=== PATIENT | female | born 1990 | race African-American/Black ===

== ENCOUNTER 2020-05-18 04:06 | Emergency (ER) | payer MEDICAID, SELFPAY ==
[2020-05-18 04:08] VITALS: BP 126/78; PULSE 86; RESP 16; TEMP 37.1; O2SAT 100; BMI 27.4
--- NOTE | 2020-05-18 04:26 | ED.GENADULT ---
HPI - General Adult General Chief complaint: General Medical Stated complaint: Hand Numbness Time Seen by Provider: 05/18/20 04:26 Source: patient Mode of arrival: ambulatory Limitations: no limitations History of Present Illness HPI narrative: Patient been feeling left middle finger numbness for last 1 week of unknown etiology today she felt tingling in the right arm which is gone now no neck pain no weakness no family history of multiple sclerosis or lupus and no injury to the left hand no neck pain Related Data Allergies Allergy/AdvReac Type Severity Reaction Status Date / Time No Known Allergies Allergy Verified 05/18/20 04:08 Review of Systems Review of Systems: Constitutional : No Weight loss, No Fever, No Chills ENT/Mouth : No sore throat, No Rhinorrhea Eyes: No Eye Pain, No Swelling Cardiovascular : No Chest Pain, no Dyspnea on Exertion, No Orthopnea, No Edema, No Palpitations, no SOB Respiratory : No Cough, No Sputum Gastrointestinal : no Nausea, No Vomiting, No Diarrhea, No abdominal Pain, No Hematochezia, No Melena Genitourinary : No Dysuria, No Urinary Frequency Musculoskeletal : No joint pain, No Myalgias, No Joint Swelling Skin : No Skin Lesions, No rash Neuro : No Weakness, , No Headache Psych : No Anxiety/Panic, No Depression Heme/Lymph: No Bruising, No Lymphadenopathy Endocrine : No Polyuria, No Polydipsia All other systems reviewed and are negative [facility] Past Medical History Medical History Anxiety Depression Physical Exam Vital Signs: Vital Signs: Last Vital Signs Temp 98.8 F 05/18/20 04:08 Pulse 86 05/18/20 04:08 Resp 16 05/18/20 04:08 BP 126/78 05/18/20 04:08 Pulse Ox 100 05/18/20 04:08 Body Mass Index 27.4 Appearance: Alert. Oriented X3. No acute distress. Eyes: Pupils equal, round and reactive to light. ENT: Pharynx normal. Neck: Normal inspection. Neck supple. CVS: Normal heart rate and rhythm. Pulses normal. Respiratory: No respiratory distress. Breath sounds normal. Abdomen: Soft and nontender. Bowel sounds are present, no mass palpable, no CVA tenderness Skin: Skin warm and dry. Normal skin color. Normal skin turgor. Extremities: No lower extremity edema. Neuro: Oriented X 3. No motor deficit. Sensory loss to the tip of left middle finger to light touch and pain and temperature, no other deficit Medical Decision Making MDM Narrative Medical decision making narrative: Patient nonspecific numbness of left 3rd fingertip etiology isn't very clear patient advised to follow-up with neurologist patient's blood sugar was 97
--- NOTE | 2020-05-18 04:27 | PC.NURSE ---
Pt ambulating from the waiting room into room 18 with a steady gait. Pt is CAOx4, speaking full sentences. Pt reporting intermittent numbness to left hand, middle finger and to right arm from elbow down. 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 Pt denies recent stressors/anxiety. Pt states that she thought the numbness was r/t a pinched nerve. Neuro exam unremarkable. MD at bedside for primary eval.
[2020-05-18 04:35] LABS: Glucose, Whole Blood 95 mg/dL (60-115)
== END 2020-05-18 04:45 | disposition home or self-care (01) ==
PROVIDERS: Emergency Provider Internal Medicine
DX: R20.2 Paresthesia of skin (principal)
CPT/HCPCS: 82947; 99283

== ENCOUNTER 2020-05-20 16:13 | Emergency (ER) | payer MEDICAID, SELFPAY ==
--- NOTE | 2020-05-20 16:50 | PC.NURSE ---
x1 call for triage, no answer.
--- NOTE | 2020-05-20 16:55 | PC.NURSE ---
x2 call for triage- no answer. pt not found in bathroom or outside.
== END 2020-05-20 17:21 | disposition left against medical advice (07) ==
PROVIDERS: Emergency Provider Emergency Medicine
DX: Z04.89 Encounter for examination and observation for other specified reasons (principal)
CPT/HCPCS: 99281

== ENCOUNTER 2020-07-08 09:28 | Emergency (ER) | payer MEDICAID, SELFPAY ==
--- NOTE | ~2020-07-08 | XR_ITS ---
EXAMINATION: XR HAND, RIGHT CLINICAL INFORMATION: Pain. Question dislocation. COMPARISON: None TECHNIQUE: PA, lateral, and oblique views of the right hand. FINDINGS: The bones and soft tissues are normal. No fracture. Alignment is anatomic. Joint spaces are maintained. No erosions or soft tissue calcifications. XR/XR hand RT min 3V IMPRESSION: Normal right hand.
[2020-07-08 09:47] VITALS: BP 134/79; PULSE 80; RESP 16; TEMP 36.8; O2SAT 97; BMI 25.6
--- NOTE | 2020-07-08 10:09 | ED.EXTPRO ---
HPI - Extremity Problem General Chief complaint: Extremity Injury, Upper Stated complaint: rt hand pain Time Seen by Provider: 07/08/20 10:07 Source: patient Mode of arrival: ambulatory Limitations: no limitations History of Present Illness HPI Narrative: 30 y/o female presenting with right thumb pain and wrist pain for the last 3 days. 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 She is right hand dominant. She denies numbness, tingling or weakness. She reports some mild swelling. She has not taken anything for the pain. Pain is worse with palpation and movement of her proximal thumb. Complaint: joint paint Onset (ago): day(s) (3) Pain Consistency: intermittent Location: right Quality: aching Radiation: none Relieving factors: immobilization Exacerbating factors: range of motion and palpation Associated symptoms: denies other symptoms Related Data Previous Rx's Medication Instructions Recorded ibuprofen 600 mg PO Q8H PRN #20 tab 07/08/20 Allergies Allergy/AdvReac Type Severity Reaction Status Date / Time No Known Allergies Allergy Verified 05/18/20 04:08 Review of Systems Review of Systems: Constitutional: No Fever, No Chills Musculoskeletal: + joint pain, No Myalgias Skin: No Skin Lesions, No rash Neuro: No Weakness, No Numbness, No Dizziness, No Headache Psych: No Anxiety/Panic, No Depression Heme/Lymph: No Bruising, No Lymphadenopathy PMFSH Past Medical History Attestation statement: The following information was validated with the patient. Medical History Anxiety Depression Social History Social History Smoking Status: Current every day smoker Use of substances other than those prescribed or required for medical reasons: No Advance Directives: No Advance Directives Information Provided: No Physical Exam Vital Signs: Vital Signs: Last Vital Signs Temp 98.3 F 07/08/20 09:47 Pulse 80 07/08/20 09:47 Resp 16 07/08/20 09:47 BP 134/79 07/08/20 09:47 Pulse Ox 97 07/08/20 09:47 Body Mass Index 25.6 Appearance: Alert. Oriented X3. No acute distress. HEENT: normal inspection CVS: Normal heart rate and rhythm. Pulses normal. Respiratory: No respiratory distress. Skin: Skin warm and dry. Normal skin color. Normal skin turgor. No rashes. Extremities: normal right hand inspection, right lateral wrist tenderness, thumb MCP joint tenderness. Full ROM with some discomfort, NV intact. 2+ radial pulse. Negative Phalen's test. Neuro: Oriented X 3. No motor deficit. No sensory deficit. Course Course Course Narrative: 30 y/o female presenting with nontraumatic right thumb/wrist pain. XR is negative. She likely sustained a sprain vs strain of one of the tendons in her wrist in her line of work. Will place in removable thumb spica splint, start NSAID and have her f/u with Ortho in 1 week if no improvement. Stable for discharge. Discharge Plan Discharge Clinical Impression: Sprain and strain of wrist Patient Disposition: Home, Self-Care Instructions: Wrist Sprain (ED) Additional Instructions: Your x-ray today was normal. It is likely that you strained or sprained one of the tendons in your wrist. Wear the wrist brace for comfort, as needed. Use ice several times per day. Elevate your hand when possible. Take the prescribed anti-inflammatory as directed for pain/discomfort. If your pain persists in 1 week, follow up with the Orthopedic doctor for further workup. Prescriptions: New ibuprofen 600 mg tablet 600 mg PO Q8H PRN (Reason: pain) Qty: 20 RF: 0 Referrals: Anderson Louise MD [Physician] - 1 week (right wrist pain) Stand Alone Forms: Work/School Release
== END 2020-07-08 10:35 | disposition home or self-care (01) ==
PROVIDERS: Emergency Provider Emergency Medicine Emergency Medical Services
DX: S63.501A Unspecified sprain of right wrist, initial encounter (principal); M25.531 Pain in right wrist; X50.0XXA Overexertion from strenuous movement or load, initial encounter; X50.3XXA Overexertion from repetitive movements, initial encounter; Y93.9 Activity, unspecified; Y92.59 Other trade areas as the place of occurrence of the external cause; Y99.0 Civilian activity done for income or pay
CPT/HCPCS: 73130; 99283

== ENCOUNTER 2021-02-04 09:39 | Emergency (ER) | payer MEDICAID, SELFPAY ==
[2021-02-04 09:46] VITALS: BP 106/96; PULSE 98; RESP 189; TEMP 36.9; O2SAT 97; BMI 25.8
--- NOTE | 2021-02-04 10:39 | ED.ABDPAIN ---
HPI - Abdominal Pain General Chief Complaint: Abdominal Pain Stated Complaint: Constipation Time Seen by Provider: 02/04/21 10:34 Source: patient Mode of arrival: ambulatory Limitations: no limitations History of Present Illness HPI narrative: 30-year-old female came in for evaluation of abdominal pain and no bowel movement for the past few days. Patient feeling constipated for 3- 4 days, no nausea, no vomiting. Has been eating with good appetite. Patient never had history of abdominal surgery in the past. Related Data Previous Rx's Medication Instructions Recorded ibuprofen 600 mg tablet 600 mg PO Q8H PRN #20 tab 07/08/20 Allergies Allergy/AdvReac Type Severity Reaction Status Date / Time No Known Allergies Allergy Verified 05/18/20 04:08 Review of Systems Review of Systems All other systems are reviewed and are negative Constitutional: Reports as per HPI and Reports no additional constitutional complaints Eyes: Reports as per HPI and Reports no additional eye complaints Reports system reviewed and no additional complaints, except as documented Cardiovascular: Reports as per HPI and Reports no additional cardiovascular complaints Respiratory: Reports as per HPI and Reports no additional respiratory complaints Gastrointestinal: Reports as per HPI and Reports no additional gastrointestinal complaints Genitourinary: Reports no additional female genitourinary complaints Musculoskeletal: Reports no additional musculoskeletal complaints Skin/Breast: Reports system reviewed and no additional complaints, except as docu Psychiatric: Reports no additional psychiatric complaints Endocrine: Reports no additional endocrine complaints Hematologic/Lymphatic: Reports no additional hematologic/lymphatic complaints Allergic/Immunologic: Reports no additional allergic/immunologic complaints Reports system reviewed and no additional complaints, except as documented and Reports Abnormal speech present Physical Exam Vital Signs: Vital Signs: Last Vital Signs Temp 98.4 F 02/04/21 09:46 Pulse 98 02/04/21 09:46 Resp 189 H 02/04/21 09:46 BP 106/96 H 02/04/21 09:46 Pulse Ox 97 02/04/21 09:46 Body Mass Index 25.8 Vital signs have been reviewed as appeared to be correct. Blood pressure normal. Heart rate normal. Respiration rate normal. Temperature normal. Oxygen saturation normal. Appearance: Alert. Oriented X3. No acute distress. Head: Normal external exam. Normocephalic. Atraumatic. No Franco signs noted. No raccoon eyes noted Eyes: PERRLA. EOMI. Conjunctiva and sclera normal. Eyelids normal. ENT: TM's Normal. Pharynx normal. Uvula midline. Moist mucous membranes. No trismus noted. No drooling noted. No muffled voice noted. Neck: Normal inspection. Neck supple. FROM. No adenopathy. Thyroid Normal. No meningeal signs. No neck mass noted. CVS: Normal heart rate and rhythm. Heart sound normal. No murmurs noted. Pulses normal throughout. Respiratory: No respiratory distress. Painless inspiration. Breath sounds normal. No wheezes/rales/rhonchi noted. Chest nontender. No accessory muscle usage noted or decreased air movement noted. Abdomen: Soft and nontender. Bowel sounds normal in all 4 quadrants. No distention noted. No organomegaly noted. No visible injury noted. Rectal exam: Hard stool in the vault. No rectal bleeding, no rectal mass. (exam was done with a female mid level project manager in the room RN Ximena). Back: No CVA tenderness. Full range of motion noted. Skin: Skin warm and dry. Normal skin color. Normal skin turgor. No rashes/lesions/lacerations noted. Extremities: No lower extremity edema. Extremities exhibit normal range of motion. Extremities nontender. Neuro: Oriented X 3. Cranial nerve exam: II-XII are grossly intact No motor deficit. No sensory deficit. Reflexes normal. Course Course Course Narrative: Assessment and plan. 30-year-old female came in with complaint of constipation for the past couple days, physical exam is very consistent with constipation with hard stool in the rectal vault, patient was given rectal enema with milk a magnesia patient had a partial bowel movement while in the emergency department but still feel stool in the vault. Repeat abdominal exam revealed mild tenderness mostly in the lower abdomen no rebound, no guarding. Will discharge the patient after drinking milk a magnesia in to have a bowel movement to home patient was instructed to return for further evaluation if unable to have bowel movement, portable nausea or vomiting. Discharge Plan Discharge Clinical Impression: Constipation Patient Disposition: Home, Self-Care Instructions: Constipation (ED) Prescriptions: No Action ibuprofen 600 mg tablet 600 mg PO Q8H PRN (Reason: pain) Qty: 20 RF: 0 Referrals: [place] [Primary Care Provider] - 2 days PMF Past Medical History Medical History Anxiety Depression Social History Social History Advance Directives: No Advance Directives Information Provided: No
[2021-02-04] MEDS: Milk of Magnesia 30 ML ORAL.SUSP PO ×2 (10:47→13:20)
[2021-02-04] MEDS: Mineral OiL enema 133 ML ENEMA PR (10:48)
== END 2021-02-04 13:21 | disposition home or self-care (01) ==
PROVIDERS: Emergency Provider Emergency Medicine
DX: K59.00 Constipation, unspecified (principal); Z79.899 Other long term (current) drug therapy
CPT/HCPCS: 99283

== ENCOUNTER 2021-03-25 19:42 | Emergency (ER) | payer MEDICAID, SELFPAY ==
[2021-03-25 20:16] VITALS: BP 145/80; PULSE 100; RESP 16; TEMP 37.2; O2SAT 96; BMI 32.9
[2021-03-25 20:26] LABS: Appearance Urine CLEAR; Color Urine YELLOW; Glucose Urine UA NEG (NEG); Leukocyte Esterase Urine NEG (NEG); Nitrite Urine NEG (NEG); Specific Gravity - Urine >= 1.030 (1.005-1.025); UACC Culture Trigger NO; Urine Blood 2+ (NEG); Urine Ketones NEG (NEG); Urine Protein TRACE MG/DL (NEG-TRACE)
[2021-03-25 20:41] LABS: Squamous Epithelial Cell Urine 1+ /LPF
[2021-03-25 20:42] LABS: Mucus Urine 2+ /LPF
--- NOTE | 2021-03-25 21:17 | ED.FEMALEGU ---
HPI - Female Genitourinary General Chief complaint: Urogenital-Female Stated complaint: so stated he has gonnorhea Time Seen by Provider: 03/25/21 21:07 Source: patient Mode of arrival: ambulatory Limitations: no limitations History of Present Illness MD elicited complaint: possible STD Pertinent past history: STI/STD (partner told her he has gonorrhea) Onset (ago): day(s) (1) Severity: mild Consistency: constant Vaginal discharge: yellow Vaginal bleeding: none Exacerbating factors: none Relieving factors: none Associated symptoms: denies other symptoms Treatment prior to arrival: none Sexual activity: Yes and New Sexual Partners Related Data Previous Rx's Medication Instructions Recorded ibuprofen 600 mg tablet 600 mg PO Q8H PRN #20 tab 07/08/20 doxycycline hyclate 100 mg capsule 100 mg PO BID 7 Days #14 cap 03/25/21 erythromycin 5 mg/gram (0.5 %) eye 0.5 inch OPHTHALMIC (EYE) BID 7 03/25/21 ointment Days #3.5 g Allergies Allergy/AdvReac Type Severity Reaction Status Date / Time No Known Allergies Allergy Verified 03/25/21 20:16 Review of Systems Review of Systems: Constitutional : No Fever, No Chills ENT/Mouth : No sore throat, No Rhinorrhea Eyes: No Eye Pain, No Redness Cardiovascular : No Chest Pain, No SOB Respiratory : No Cough, No Sputum, No Wheezing Gastrointestinal : no Nausea, No Vomiting, No Diarrhea, no abdominal pain, Genitourinary : no irregular bleeding, No Dysuria, No Urinary Frequency,no pelvic pain, pos vag discharge Musculoskeletal : No Myalgias Skin : No rash Neuro : No Weakness, No Headache PMFSH Past Medical History Attestation statement: The following information was validated with the patient. Medical History Anxiety Depression Social History Social History (Updated 03/25/21 @ 21:19 by Neisha Dill DO) Patient Tobacco Use Status: Never used Tobacco Advance Directives: No Patient : No Physical Exam Vital Signs: Vital Signs: Last Vital Signs Temp 99.0 F 03/25/21 20:16 Pulse 100 03/25/21 20:16 Resp 16 03/25/21 20:16 BP 145/80 H 03/25/21 20:16 Pulse Ox 96 03/25/21 20:16 Body Mass Index 32.9 Appearance: Alert. Oriented X3. No acute distress. Eyes: Pupils equal, round and reactive to light. ENT: Pharynx normal. Neck: Normal inspection. CVS: Normal heart rate and rhythm. Pulses normal. Respiratory: No respiratory distress. Breath sounds normal. Abdomen: Soft and nontender. Skin: Skin warm and dry. Normal skin color. Extremities: No lower extremity edema. Neuro: Oriented X 3. No motor deficit. No sensory deficit. Course Course Course Narrative: also c/o bumps onto inner right eye - only on conjunctiva two small clear fluid sacs no erythema/injection/drainage MDM - Female Genitourinary MDM Narrative Medical decision making narrative: 30 yo female with exposure to gonorrhea here requesting treatment, not toxic appearing benign exam - gave UA sample, no pain doubt TOA, will start on ceftriaxone and doxy - patient aware she needs to practice safe sex Lab Data Labs: Lab Results 03/25/21 03/25/21 Range/Units 20:17 21:33 Urine Color YELLOW Urine Appearance CLEAR Urine pH 6.0 (5.0-8.0) Ur Specific [place] >= 1.030 H (1.005-1.025) Urine Protein TRACE (NEG-TRACE) MG/DL Urine Glucose (UA) NEG (NEG) MG/DL Urine Ketones NEG (NEG) MG/DL Urine Blood 2+ H (NEG) Urine Nitrite NEG (NEG) Ur Leukocyte Esterase NEG (NEG) Urine RBC 5-9 H (0) /HPF Urine WBC 1-4 (0-4) /HPF Ur Squamous Epith Cells 1+ /LPF Urine Bacteria NONE /LPF Urine Mucus 2+ /LPF Urine Test NEGATIVE (NEGATIVE) Discharge Plan Discharge Clinical Impression: Exposure to gonorrhea, Conjunctival irritation, Trichomoniasis Patient Disposition: Home, Self-Care Instructions: Gonorrhea (ED), Trichomoniasis (ED) Additional Instructions: return to ED for any worsening symptoms or concerns no sex for 10 days, practice safe sex. You and your partner need to be fully treated or you will continue to pass this back and forth Prescriptions: New doxycycline hyclate 100 mg capsule 100 mg PO BID 7 Days Qty: 14 RF: 0 erythromycin 5 mg/gram (0.5 %) ointment 0.5 inch ophthalmic (eye) BID 7 Days Qty: 3.5 RF: 0 No Action ibuprofen 600 mg tablet 600 mg PO Q8H PRN (Reason: pain) Qty: 20 RF: 0
[2021-03-25] MEDS: cefTRIAXone sodium 500 MG, Lidocaine HCl 1 % MPF 1 ML IM (21:23)
[2021-03-25 21:42] LABS: UPreg QC Valid YES; Urine Pregnancy NEGATIVE (NEGATIVE)
[2021-03-25 21:55] VITALS: BP 122/79; PULSE 84; RESP 18; TEMP 37.1; O2SAT 97
[2021-03-25] MEDS: metroNIDAZOLE 500 MG TABLET 2000 MG PO (22:04)
[2021-03-25] MEDS: Ondansetron ODT 4 MG TAB.RAPDIS TRANSLINGU (22:04)
[2021-03-25] MEDS: Erythromycin Base 0.5% Oph Oin 1 GM TUBE 1 CM EYE-RIGHT (22:05)
[2021-03-26 01:08] LABS: CT PCR NOT DETECTED (Not Detect.); NG PCR DETECTED (Not Detect.)
== END 2021-03-25 22:11 | disposition home or self-care (01) ==
PROVIDERS: Emergency Provider Emergency Medicine
DX: A54.9 Gonococcal infection, unspecified (principal); A59.9 Trichomoniasis, unspecified
CPT/HCPCS: 81001; 81025; 87491; 87591; 96372; 99283; 99284; J0696

== ENCOUNTER 2021-09-24 08:36 | Emergency (ER) | payer MEDICAID, SELFPAY ==
[2021-09-24 08:47] VITALS: BP 126/91; PULSE 78; RESP 18; TEMP 36.6; O2SAT 100; BMI 29.2
--- NOTE | 2021-09-24 10:04 | ED_ITS ---
HPI - Dental/Oral General Chief complaint: Dental/Oral Stated complaint: dental pain Time Seen by Provider: 09/24/21 09:50 Source: patient Mode of arrival: ambulatory Limitations: no limitations History of Present Illness HPI Narrative: 31-year-old female presents for 3 months of worsening dental pain. Patient sta rika her left upper molar and right lower molar are painful. No fevers, she is able to eat and drink, she is able to open her mouth all the way, no swollen neck, no sore throat. MD Complaint: tooth pain Location: Tooth # Teeth map: 1. multiple caries eroding underside of tooth 2. eroded, decayed tooth with partial avulsion of enamel Onset (ago): month(s) (3) Duration: constant Severity: severe Severity scale (1-10): 10 Relieving factors: nothing Exacerbating factors: cold and heat Context: history of dental caries and poor dental care Treatment prior to arrival: oral analgesic Related Data Previous Rx's Medication Instructions Recorded ibuprofen 600 mg tablet 600 mg PO Q8H PRN #20 tab 07/08/20 doxycycline hyclate 100 mg capsule 100 mg PO BID 7 Days #14 cap 03/25/21 erythromycin 5 mg/gram (0.5 %) eye 0.5 inch OPHTHALMIC (EYE) BID 7 03/25/21 ointment Days #3.5 g metronidazole 500 mg tablet 500 mg PO BID 7 Days #14 tab 03/27/21 clindamycin HCl 300 mg capsule 300 mg PO Q6H 10 Days #40 cap 09/24/21 ketorolac 10 mg tablet 10 mg PO Q6H 5 Days #20 tab 09/24/21 Allergies Allergy/AdvReac Type Severity Reaction Status Date / Time No Known Allergies Allergy Verified 03/25/21 20:16 Review of Systems Constitutional: Constitutional: Denies body ache(s), Denies chills, Denies fatigue, Denies fever(s), Denies headache(s), Denies malaise and Denies weakness Eyes: Eyes: Denies diplopia ENT: Reports dental pain, Denies vertigo, Denies dizziness, Denies otalgia, Denies headache(s), Denies hoarseness, Denies mouth lesions, Reports mouth pain, Denies neck mass, Denies neck pain, Denies odynophagia, Denies post nasal drip, Denies sinus pain, Denies sinus pressure, Denies sore throat and Denies throat swelling Cardiovascular: Cardiovascular: Denies chest pain, Denies syncope, Denies leg edema, Denies lightheadedness, Denies Loss of Consciousness, Denies palpitations and Denies dyspnea Respiratory: Respiratory: Denies chest congestion, Denies cough and Denies dyspnea Gastrointestinal: Gastrointestinal: Denies abdominal pain, Denies hematochezia, Denies constipation, Denies diarrhea, Denies odynophagia and Denies vomiting Musculoskeletal: Musculoskeletal: Reports no additional musculoskeletal complaints and Denies neck pain Neurologic: Denies confusion, Denies vertigo, Denies dizziness, Denies syncope, Denies headache(s) and Denies weakness Psychiatric: Psychiatric: Denies anxiety, Denies confusion and Denies depression Endocrine: Endocrine: Denies fatigue and Denies palpitations Allergic/Immunologic: Allergic/Immunologic: Denies throat swelling PMFSH Past Medical History Medical History Anxiety Depression Social History Social History (Updated 03/25/21 @ 21:19 by Neisha Dill DO) Patient Tobacco Use Status: Never used Tobacco Advance Directives: No Advance Directives Information Provided: No Patient : No Physical Exam Vital Signs: Vital Signs: Last Vital Signs Temp 97.9 F 09/24/21 08:47 Pulse 78 09/24/21 08:47 Resp 18 09/24/21 08:47 BP 126/91 H 09/24/21 08:47 Pulse Ox 100 09/24/21 08:47 BMI result Body Mass Index 29.2 Const: General: No confusion Nutritional Appearance: well nourished Orientation/consciousness: No confusion Limitations: no limitations HEENT: Head: Yes normal to inspection, Yes normocephalic and Yes atraumatic Ears: hearing grossly normal bilaterally and external ears normal General nose exam: Normal external nose present Face and sinus: Yes normal facial exam, Yes sinuses nontender and Yes face symmetric Mouth: Normal oral and palatal mucosa present, mucous membranes dry and malodorous breath Teeth and gingiva: gingiva normal, caries and poor dentition Teeth image: 1. Multiple caries eroding underside of tooth 2. Eroded, decayed tooth, with partial avulsion Throat: Yes posterior oropharynx normal Eyes: Conjunctivae: conjunctivae normal Pupils: Equal, round and reactive pupils present EOM: EOMs intact bilaterally Neck: Neck: Yes full ROM, Yes no lymphadenopathy and Yes supple Resp: Effort & Inspection: normal respiratory effort and able to speak in complete sentences Auscultation: clear to auscultation bilaterally, no crackles, no rales, no rhonchi and no wheezes Cardio: Rate: regular rate Rhythm: regular rhythm Heart sounds: S1 normal heart sound present and S2 normal heart sound present Skin: General skin exam: no rashes or lesions noted Neuro: General: No confusion Cranial nerves: Yes Equal, round and reactive pupils present Extrem: General: Yes normal to inspection and Yes full ROM Psych: Appearance: grossly normal Affect: normal affect Attitude: cooperative Thought process: Normal thought process present Course Course Course Narrative: 31-year-old female with stable vitals is afebrile well-appearing presents with multiple tooth caries and dental pain. On exam, poor dentition, no palpable or drainable gingival abscess, will place patient on clindamycin, ketorolac for pain. Gave return precautions of fever, unable to open mouth, worsening pain, return to be seen Discharge Plan Discharge Clinical Impression: Dental abscess Patient Disposition: Home, Self-Care Instructions: Dental Abscess (ED) Additional Instructions: Please call a dentist on the sheet I gave you for follow-up appointment. Please take antibiotics as prescribed, 1 pill every 6 hours for the next 10 days. Plea se take ketorolac as prescribed, 1 pill every 6 hours for 5 days. Do not take any ibuprofen containing products while your taking ketorolac. Please return to emergency room if you have fevers, you cannot open your mouth, if you have worsening pain, or for any other new or concerning symptoms. Prescriptions: New clindamycin HCl 300 mg capsule 300 mg PO Q6H 10 Days Qty: 40 0RF ketorolac 10 mg tablet 10 mg PO Q6H 5 Days Qty: 20 0RF No Action ibuprofen 600 mg tablet 600 mg PO Q8H PRN (Reason: pain) Qty: 20 0RF doxycycline hyclate 100 mg capsule 100 mg PO BID 7 Days Qty: 14 0RF erythromycin 5 mg/gram (0.5 %) ointment 0.5 inch ophthalmic (eye) BID 7 Days Qty: 3.5 0RF metronidazole 500 mg tablet 500 mg PO BID 7 Days Qty: 14 0RF
[2021-09-24] MEDS: Ketorolac Tromethamine 30 MG/ML VIAL IM (10:15)
== END 2021-09-24 10:19 | disposition home or self-care (01) ==
PROVIDERS: Emergency Provider Emergency Medicine
DX: K04.7 Periapical abscess without sinus (principal)
CPT/HCPCS: 96372; 99283; 99284; J1885

== ENCOUNTER 2022-10-24 15:31 | Emergency (ER) | payer MEDICAID, SELFPAY ==
[2022-10-24 15:46] VITALS: BP 127/80; PULSE 78; RESP 18; TEMP 37.1; O2SAT 98; BMI 36.6
== END 2022-10-24 18:04 | disposition left against medical advice (07) ==
PROVIDERS: Emergency Provider Emergency Medicine
DX: S02.5XXA Fracture of tooth (traumatic), initial encounter for closed fracture (principal); X58.XXXA Exposure to other specified factors, initial encounter; Y93.9 Activity, unspecified; Y92.9 Unspecified place or not applicable; Y99.9 Unspecified external cause status
CPT/HCPCS: 99282

== ENCOUNTER 2023-01-27 17:41 | Outpatient (REF) | payer MEDICAID, SELFPAY ==
[2023-01-28 12:08] LABS: BV Int Neg Control Negative (Negative); BV Int Pos Control Positive (Positive)
== END 2023-01-27 17:42 | disposition home or self-care (01) ==
LOC: HO.HHCLNP 17:41
PROVIDERS: Visit Provider Advanced Practice Midwife
DX: N89.8 Other specified noninflammatory disorders of vagina (principal)
CPT/HCPCS: 87480; 87510; 87660

== ENCOUNTER 2023-01-28 16:11 | Outpatient (REF) | payer MEDICAID, SELFPAY ==
[2023-01-29 07:27] LABS: CT PCR NOT DETECTED (Not Detect.); NG PCR NOT DETECTED (Not Detect.)
[2023-01-29 14:20] LABS: HBS Num1 4.19 mIU/mL (0-7.99); HBc Num1 0.12 S/CO (0.00-0.79); HBsAGNum1 0.49 S/CO (0.00-0.99); HIV AB/AG Nonreactive (Nonreactive); HIV Num 1 0.07 S/CO (0.00-0.99); Hepatitis B Core Antibody Nonreactive (Nonreactive); Hepatitis B Surface Antigen Negative (Negative); ~HepC Num1 0.22 S/CO (0.00-0.79); ~Hepatitis B Surface Antibody NONREACTIVE (Nonreactive); ~Hepatitis C Antibody Nonreactive (Nonreactive)
[2023-01-31 09:01] LABS: Syphilis Screen Nonreactive (Nonreactive)
== END 2023-01-28 16:12 | disposition home or self-care (01) ==
LOC: HO.HHCL 16:11
PROVIDERS: Visit Provider Advanced Practice Midwife
DX: Z11.4 Encounter for screening for human immunodeficiency virus [HIV] (principal); Z11.3 Encounter for screening for infections with a predominantly sexual mode of transmission
CPT/HCPCS: 0353U; 86704; 86706; 86780; 86803; 87340; 87389

== ENCOUNTER 2023-04-27 22:31 | Emergency (ER) | payer MEDICAID, SELFPAY ==
[2023-04-27 22:53] VITALS: BP 125/80; PULSE 77; RESP 18; TEMP 37.1; O2SAT 97; BMI 36.6
== END 2023-04-28 02:56 | disposition left against medical advice (07) ==
PROVIDERS: Emergency Provider Emergency Medicine
DX: R20.0 Anesthesia of skin (principal)
CPT/HCPCS: 99281

== ENCOUNTER 2023-12-03 20:31 | Emergency (ER) | payer MEDICAID, SELFPAY ==
[2023-12-03 20:34] VITALS: BP 123/81; PULSE 79; RESP 18; TEMP 36.5; O2SAT 97; BMI 38.1
--- NOTE | 2023-12-03 22:21 | ED.DENTAL ---
HPI - Dental/Oral General Chief complaint: Dental/Oral Stated complaint: toothache Time Seen by Provider: 12/03/23 22:11 Source: patient Mode of arrival: ambulatory Limitations: no limitations History of Present Illness ED Provider: Dr. Kal Morales HPI Narrative: 33-year-old female with a history of opiate use disorder on Suboxone who presents emergency department for evaluation of dental pain. Patient states that her teeth are very decayed and she attributes this to starting Suboxone. She states she has had multiple dental infections and she did see a dentist who recommended that she have all of her teeth extracted. Patient states that her proximally 1 month ago she had a dental infection and was treated with the amoxicillin but never followed up with her dentist again. She states that over the past week she has had increased pain in her right lower jaw but all of her teeth hurt. She states that the gums in her right lower jaw are very swollen. She states that she had subjective fever and chills. She denied nausea, vomiting, weakness. Related Data Previous Rx's ?Medication ?Instructions ?Recorded ibuprofen 600 mg tablet 600 mg PO Q8H PRN pain #20 tabs 07/08/20 doxycycline hyclate 100 mg capsule 100 mg PO BID 7 days #14 caps 03/25/21 erythromycin 5 mg/gram (0.5 %) eye 0.5 inch ophthalmic (eye) BID 7 03/25/21 ointment days #3.5 grams metronidazole 500 mg tablet 500 mg PO BID 7 days #14 tabs 03/27/21 clindamycin HCl 300 mg capsule 300 mg PO Q6H 10 days #40 caps 09/24/21 ketorolac 10 mg tablet 10 mg PO Q6H 5 days #20 tabs 09/24/21 acetaminophen 500 mg tablet 1,000 mg (2 x 500 mg) PO Q6H PRN 12/03/23 (Tylenol Extra Strength) fever or pain #20 tabs clindamycin HCl 300 mg capsule 600 mg (2 x 300 mg) PO Q8H 7 days 12/03/23 #42 caps ibuprofen 400 mg tablet 400 mg PO TID PRN fever or pain 12/03/23 #30 tabs Allergies Allergy/AdvReac Type Severity Reaction Status Date / Time No Known Allergies Allergy Verified 12/03/23 20:39 Review of Systems Review of Systems: Yes all other systems are reviewed and are negative PMFSH [facility] Narrative: Social history: The patient does smoke cigarettes. She denies alcohol use. 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 Medical History Anxiety Depression Social History Social History (Updated 03/25/21 @ 21:19 by Amaya Dill DO) Patient Tobacco Use Status: Never used Tobacco Advance Directives: No Advance Directives Information Provided: No Do you have a plan to hurt others: No Plan Physical Exam Vital Signs: Vital Signs: Last Vital Signs Temp 97.7 F 12/03/23 20:34 Pulse 79 12/03/23 20:34 Resp 18 12/03/23 20:34 BP 123/81 12/03/23 20:34 Pulse Ox 97 12/03/23 20:34 O2 Del Method Room Air 12/03/23 20:34 BMI result Body Mass Index 38.1 Vital signs were normal Exam: General: Awake, alert in no distress Mouth: Patient has significant decay of her teeth down to the gumline, patient's right lower jaw has several teeth decayed below the gumline with swelling of the gingiva with no obvious abscess that needs to be drained. Patient's face appears to be symmetric with no significant soft tissue swelling. Medical Decision Making Medical Decision Making [facility] Narrative: 33-year-old female with a history of opiate use disorder on Suboxone who presents emergency department for evaluation of dental pain x1 month, with increased pain in the right lower jaw x1 week. Vital signs were normal. Examination did reveal significant dental caries with several teeth in the right lower jaw decayed below the gumline with swelling of the gingiva with no obvious drainable abscess. Differential diagnosis: ?Includes but is not limited to dental caries, dental infection, dental abscess, gingivitis Patient was initially treated with the following: Clindamycin 600 mg orally, ibuprofen 400 mg orally Course: 22:34 Patient's examination is consistent with dental infection secondary to severe dental caries as well as gingival infection. Patient was started on clindamycin 600 mg every 8 hours x7 days and she was given her 1st dose of clindamycin 600 mg orally here in the emergency department. Patient was given prescriptions for ibuprofen 400 mg every 6 hours as needed for pain and Tylenol 1000 mg every 6 hours as needed for pain. She was given her 1st dose of ibuprofen 400 mg orally here in the emergency department. Patient was advised to follow-up with her dentist in 2 days. She was given printed and verbal instructions and discharged home. Prescription Management I considered prescription management with: Pain Medication and Antibiotic Chronic Conditions Patient?s care impacted by: Other (Opiate use disorder) Discharge Plan Discharge Clinical Impression: Dental caries, Dental infection Patient Disposition: Home, Self-Care Instructions: Dental Abscess (ED) Additional Instructions: At this time, your exam is consistent with an infection of the teeth and gums in the right lower jaw. Take clindamycin 300 mg pills, 2 pills 3 times a day (every 6 hours while awake) for 7 days Take ibuprofen 200 mg pills, 2 pills every 6 hours as needed for pain or fever. Take Tylenol (acetaminophen) 500 mg pills, 2 pills every 6 hours as needed for pain or fever. Follow-up with your dentist in 2 days. Please return to the emergency department if your symptoms get worse or if you develop any symptoms that are concerning to you. Prescriptions: New clindamycin HCl 300 mg capsule 600 mg PO Q8H 7 Days Qty: 42 0RF acetaminophen [Tylenol Extra Strength] 500 mg tablet 1,000 mg PO Q6H PRN (Reason: fever or pain) Qty: 20 0RF ibuprofen 400 mg tablet 400 mg PO TID PRN (Reason: fever or pain) Qty: 30 0RF No Action ibuprofen 600 mg tablet 600 mg PO Q8H PRN (Reason: pain) Qty: 20 0RF doxycycline hyclate 100 mg capsule 100 mg PO BID 7 Days Qty: 14 0RF erythromycin 5 mg/gram (0.5 %) ointment 0.5 inch ophthalmic (eye) BID 7 Days Qty: 3.5 0RF metronidazole 500 mg tablet 500 mg PO BID 7 Days Qty: 14 0RF clindamycin HCl 300 mg capsule 300 mg PO Q6H 10 Days Qty: 40 0RF ketorolac 10 mg tablet 10 mg PO Q6H 5 Days Qty: 20 0RF Print Language: Citizen Of [place]
[2023-12-03] MEDS: Ibuprofen 400 MG TABLET PO (22:37)
[2023-12-03] MEDS: Clindamycin HCL 300 MG CAPSULE 600 MG PO (22:37)
[2023-12-03 22:50] VITALS: BP 123/81; PULSE 79; RESP 18; TEMP 36.5; O2SAT 97
== END 2023-12-03 22:51 | disposition home or self-care (01) ==
PROVIDERS: Emergency Provider Emergency Medicine Emergency Medical Services
DX: K04.7 Periapical abscess without sinus (principal); K02.9 Dental caries, unspecified; K08.89 Other specified disorders of teeth and supporting structures; F11.20 Opioid dependence, uncomplicated
CPT/HCPCS: 99283

== ENCOUNTER 2024-01-12 18:11 | Emergency (ER) | payer MEDICAID, SELFPAY ==
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
[2024-01-12 18:21] VITALS: BP 120/85; PULSE 88; RESP 16; TEMP 36.4; O2SAT 97; BMI 27.4
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
[2024-01-12 19:20] VITALS: BP 133/90; PULSE 76; RESP 14; TEMP 36.8; O2SAT 95
== END 2024-01-12 23:22 | disposition home or self-care (01) ==
PROVIDERS: Emergency Provider Emergency Medicine Emergency Medical Services
DX: S13.9XXA Sprain of joints and ligaments of unspecified parts of neck, initial encounter (principal); R07.89 Other chest pain; M54.2 Cervicalgia; R51.9 Headache, unspecified; V43.52XA Car driver injured in collision with other type car in traffic accident, initial encounter; Y93.89 Activity, other specified; Y92.488 Other paved roadways as the place of occurrence of the external cause; Y99.8 Other external cause status
CPT/HCPCS: 70450; 71046; 72125; 99283; 99284

== ENCOUNTER 2024-05-15 13:10 | Emergency (ER) | payer MEDICAID, SELFPAY ==
--- NOTE | ~2024-05-15 | XR_ITS ---
EXAMINATION: XR CHEST CLINICAL INFORMATION: chest pain COMPARISON: Chest 01/12/2024 TECHNIQUE: Frontal view of the chest was obtained. FINDINGS: No significant abnormality is noted involving the heart, lungs, mediastinum, bony thorax or soft tissues. XR/XR chest 1V IMPRESSION: Unremarkable chest examination. No change from 01/12/2024 Electronically signed by: Oliverio Starr MD 05/15/2024 07:19 PM EST
--- NOTE | ~2024-05-15 | CT_ITS ---
EXAMINATION: CT HEAD WITHOUT CONTRAST CLINICAL INFORMATION: Numbness. COMPARISON: CT head from 01/12/2024. TECHNIQUE: Contiguous axial imaging was performed from the skull base to vertex without intravenous administration of contrast. This CT examination was performed using dose optimization techniques as appropriate, variously including the following: *Automated exposure control. *Adjustment of mA and/or kV according to patient size (this includes techniques or standardized protocols for targeted exams where dose is matched to indication/reason for exam; i.e. extremities or head). *Use of iterative reconstruction technique. DLP: 595 mGy-cm FINDINGS: There is no evidence of acute intracranial hemorrhage or edematous territorial infarction. Dailey-white matter differentiation is preserved. There is no abnormal attenuation within the brain parenchyma. The ventricles are normal in morphology and size. No evidence for obstructive hydrocephalus. No abnormal mass effect or midline shift. No extra-axial fluid collections. No acute soft tissue or osseous abnormalities. Mild mucosal thickening of the paranasal sinuses. The mastoid air cells and middle ear cavities are clear. CT/CT head/brain wo IV con IMPRESSION: No evidence of acute intracranial hemorrhage or edematous territorial infarction. Electronically signed by: Farrukh Gaines DO 05/15/2024 06:18 PM [facility]
[2024-05-15 13:19] VITALS: BP 138/88; PULSE 63; RESP 16; TEMP 37; O2SAT 98; BMI 37.7
[2024-05-15 15:04] LABS: MANUAL DIFF FLAG NO
[2024-05-15 15:06] LABS: Appearance Urine Cloudy; Basophils Percent Auto 0.3 % (0-2); Color Urine Yellow; Eosinophils Absolute Auto 0.1 X10*3/uL (0.0-0.4); Glucose Urine UA Negative (Negative); Hemoglobin 12.2 g/dl (12.0-16.0); Imm Gran Abs Auto 0.03 X10*3/uL (0.00-0.03); Imm Gran Pct Auto 0.3 % (0.0-0.4); Leukocyte Esterase Urine Moderate (2+) (Negative); Lymphocytes Absolute Auto 3.4 X10*3/uL (1.2-4.9); Lymphocytes Percent Auto 39.7 % (20-40); Mean Corpuscular HGB Conc 33.9 g/dl (31.0-35.0); Mean Corpuscular Hemoglobin 31.2 pg (27.0-33.0); Mean Corpuscular Volume 92.1 fL (80.0-98.0); Mean Platelet Volume 9.3 fL (9.4-12.3); Monocytes Absolute Auto 0.5 X10*3/uL (0.1-1.2); Monocytes Percent Auto 5.7 % (2-11); Neutrophils Absolute Auto 4.6 x10*3/uL (2.0-8.3); Nitrite Urine Negative (Negative); PH 6.5 (5.0-9.0); Platelet Count 320 X10*3/uL (160-400); Red Blood Count 3.91 X10*6/uL (4.20-5.50); Red Cell Distribution Width 11.6 % (11.0-16.0); Specific Gravity - Urine >= 1.030 (1.005-1.025); UMIC TRIGGER UACC YES; Urine Blood Small (1+) (Negative); Urine Ketones Negative (Negative); Urine Protein Negative (Neg-Trace); White Blood Count 8.7 X10*3/uL (4.8-10.8)
[2024-05-15 15:10] LABS: Bacteria Urine 4+ (None Seen); Hyaline Casts Urine 0-2 /LPF (0-2); RBC Urine >20 /HPF (0-2); Squamous Epithelial Cell Urine >20 /HPF (0-2); UACC Culture Trigger YES; WBC Urine 21-50 /HPF (0-5)
[2024-05-15 15:34] LABS: Albumin Level 4.1 g/dL (3.5-5.0); Anion Gap 12 (12-20); Aspartate Amino Transferase 24 U/L (5-31); Bilirubin Total 0.3 mg/dL (0.0-1.0); Blood Urea Nitrogen 11 mg/dL (9-16); Calcium 9.1 mg/dL (8.4-10.2); Carbon Dioxide 26 mmol/L (22-29); Chloride 104 mmol/L (96-108); Creatinine Clr Calc Pharmacy 122.2; Estimated Glomerular Filt Rate > 60; Glucose Random 95 mg/dL (60-115); HCG Quantitative < 2 mIU/mL; Lipase 11 U/L (8-78); Magnesium 1.9 mg/dL (1.6-2.6); Phosphorus 4.1 mg/dL (2.7-4.5); Potassium 3.8 mmol/L (3.3-5.1); Sodium 138 mmol/L (135-145); Total Protein 7.5 g/dL (6.5-8.0)
[2024-05-15 15:39] LABS: Alanine Aminotransferase 19 U/L (0-31); Alkaline Phosphatase 51 U/L (39-117)
[2024-05-15 16:40] VITALS: BP 120/83; PULSE 75; RESP 16; TEMP 36.3; O2SAT 97
--- NOTE | 2024-05-15 16:43 | ECG_ITS ---
Test Reason : L ARM NUMBNESS/ CHEST PAIN Blood Pressure : / mmHG Vent. Rate : 064 BPM Atrial Rate : 064 BPM P-R Int : 188 ms QRS Dur : 064 ms QT Int : 402 ms P-R-T Axes : 003 015 012 degrees QTc Int : 414 ms Normal sinus rhythm Anterior infarct , age undetermined Abnormal ECG When compared with ECG of 24-MAR-2017 20:58, Anterior infarct is now Present Nonspecific T wave abnormality, worse in Anterolateral leads Referred By: Garry Issa Electronically Signed By:CLIVE SELLERS
--- NOTE | 2024-05-15 16:50 | ED_ITS ---
HPI - General Adult General Chief complaint: Neck Pain/Injury Stated complaint: Numbness L side of body Time Seen by Provider: 05/15/24 16:34 Source: patient Mode of arrival: ambulatory Limitations: no limitations History of Present Illness ED Provider: Garry Issa HPI narrative: 34 yold female preesnts to the ED for left arm numbness/pain/tinling raidating down lefft arm and into chest for months. patient denies any slurred speech, facial droop, paralysis of extremities, fever, chills, or any trauma. Related Data Previous Rx's ?Medication ?Instructions ?Recorded ibuprofen 600 mg tablet 600 mg PO Q8H PRN pain #20 tabs 07/08/20 doxycycline hyclate 100 mg capsule 100 mg PO BID 7 days #14 caps 03/25/21 erythromycin 5 mg/gram (0.5 %) eye 0.5 inch ophthalmic (eye) BID 7 03/25/21 ointment days #3.5 grams metronidazole 500 mg tablet 500 mg PO BID 7 days #14 tabs 03/27/21 clindamycin HCl 300 mg capsule 300 mg PO Q6H 10 days #40 caps 09/24/21 ketorolac 10 mg tablet 10 mg PO Q6H 5 days #20 tabs 09/24/21 acetaminophen 500 mg tablet 1,000 mg (2 x 500 mg) PO Q6H PRN 12/03/23 (Tylenol Extra Strength) fever or pain #20 tabs clindamycin HCl 300 mg capsule 600 mg (2 x 300 mg) PO Q8H 7 days 12/03/23 #42 caps ibuprofen 400 mg tablet 400 mg PO TID PRN fever or pain 12/03/23 #30 tabs Allergies Allergy/AdvReac Type Severity Reaction Status Date / Time No Known Allergies Allergy Verified 05/15/24 13:23 [facility] Past Medical History Medical History Anxiety Depression Social History Social History (Updated 03/25/21 @ 21:19 by Amaya Dill DO) Patient Tobacco Use Status: Never used Tobacco Physical Exam ED Vital Signs: Vital Signs - 24 hr 05/15/24 13:19 05/15/24 16:40 Temperature 98.6 F 97.4 F Pulse Rate 63 75 Respiratory Rate 16 16 Blood Pressure 138/88 120/83 Pulse Oximetry 98 97 Oxygen Delivery Method Room Air Room Air BMI result Body Mass Index 37.7 Const General: cooperative, healthy appearing, comfortable, no acute distress, well developed, alert, awake and Physically active Orientation/consciousness: patient oriented x3 [facility] Head: Yes normal to inspection, Yes No palpable skull fracture present, Yes normocephalic and Yes atraumatic Ears: hearing grossly normal bilaterally, external ears normal, TM's normal bilaterally, TM normal on the right and TM normal on the left Eyes General: appearance normal, both eyes and all related structures Visual Davies: normal visual davies by confrontation Alignment and Position: alignment normal and position normal Periorbital: periorbital findings normal Eyelids: Yes eyelids normal Conjunctivae: conjunctivae normal Sclerae: sclerae normal Corneas: corneas normal Pupils: Pupils normal by confrontation Neck Neck: Yes normal visual inspection, Yes full ROM, Yes no lymphadenopathy, Yes no meningeal signs, Yes trachea midline, Yes supple, No anterior neck swelling and No tender Chest Chest palpation & inspection: normal inspection of the chest and normal palpation of entire chest wall Resp Effort & Inspection: normal respiratory effort and able to speak in complete sentences Auscultation: clear to auscultation bilaterally Cardio Jugular venous distension: no JVD Heart sounds: S1 normal heart sound present and S2 normal heart sound present GI Inspection: Yes normal to inspection Palpation (GI): Soft to palpation, not firm, nontender, no guarding and not rigid General: Yes no CVA tenderness Back/Spine/Pelvis Back: no CVA tenderness and No back tenderness Skin General skin exam: no rashes or lesions noted, elasticity normal and turgor normal Neuro General: patient oriented x3, gait normal, tone normal, moves all extremities, Normal light touch and pain sensation, no meningeal signs, no focal motor deficits, CN's II-XI intact bilaterally and normal sensation to monofilament Extrem Other: bilateral lower extremities negative for swelling, pitting edema, or calf tenderness on palpation. Psych Appearance: grossly normal, well kempt and not disheveled Medical Decision Making Medical Decision Making MDM Narrative: [age] year female presents to ED for left side arm tingling numbness radiating to chest 4 months without any trauma. Patient denies any shortness of breath. Patient denies any slurred speech, facial droop of paralysis of extremities. NIH score is 0. Head CT scan normal. EKG negative STEMI. One troponin negative after having symptoms for a month. Patient explained worrisome signs and informed to return to the ED immediately. Patient has follow-up appointment with her neuro neurologist to have neurodermatone test done. Not suspecting stroke, PE, MN, posteriorcebellar stroke,CHF, pericarditis, myocarditis, caudina equina, epidural abscess, carotid dissection, aortic dissection, or any other life threatening etiology. Differential Diagnosis Differential Diagnoses: The differential diagnosis associated with the presentation includes (Numbness tingling MN, anxiety, peripheral neuropathy) Admission/Observation Consideration of admission/observation: Escalation of care including admission/observation considered Lab Data 05/15/24 14:57 05/15/24 14:57 Labs: Lab Results 05/15/24 05/15/24 Range/Units 14:57 17:15 WBC 8.7 (4.8-10.8) X10*3/uL RBC 3.91 L (4.20-5.50) X10*6/uL Hgb 12.2 (12.0-16.0) g/dl Hct 36.0 L (37.0-47.0) % MCV 92.1 (80.0-98.0) fL MCH 31.2 (27.0-33.0) pg MCHC 33.9 (31.0-35.0) g/dl RDW 11.6 (11.0-16.0) % Plt Count 320 (160-400) X10*3/uL MPV 9.3 L (9.4-12.3) fL Immature Gran % (Auto) 0.3 (0.0-0.4) % Neut % (Auto) 53.0 (45-73) % Lymph % (Auto) 39.7 (20-40) % Armstrong % (Auto) 5.7 (2-11) % Eos % (Auto) 1.0 (0-4) % Baso % (Auto) 0.3 (0-2) % Lymph # (Auto) 3.4 (1.2-4.9) X10*3/uL Armstrong # (Auto) 0.5 (0.1-1.2) X10*3/uL Eos # (Auto) 0.1 (0.0-0.4) X10*3/uL Baso # (Auto) 0.0 (0.0-0.2) X10*3/uL Abs Immat Gran (auto) 0.03 (0.00-0.03) X10*3/uL Absolute Neuts (auto) 4.6 (2.0-8.3) x10*3/uL Absolute Nucleated RBC 0.000 (0.0-0.012) X10*3/uL Nucleated RBC % (auto) 0.0 (0.0-0.2) /100WBC PT 10.7 L (10.9-12.4) SEC INR 0.9 (0.9-1.1) APTT 35.5 (26.0-36.8) SEC Sodium 138 (135-145) mmol/L Potassium 3.8 (3.3-5.1) mmol/L Chloride 104 (96-108) mmol/L Carbon Dioxide 26 (22-29) mmol/L Anion Gap 12 (12-20) BUN 11 (9-16) mg/dL Creatinine 0.69 (0.5-1.4) mg/dL Estim Creat Clear Calc 122.2 Estimated GFR > 60 Random Glucose 95 (60-115) mg/dL Calcium 9.1 (8.4-10.2) mg/dL Phosphorus 4.1 (2.7-4.5) mg/dL Magnesium 1.9 (1.6-2.6) mg/dL Total Bilirubin 0.3 (0.0-1.0) mg/dL AST 24 (5-31) U/L ALT 19 (0-31) U/L Alkaline Phosphatase 51 (39-117) U/L Troponin I High Sens < 2.7 (<3.5-17.0) ng/L Total Protein 7.5 (6.5-8.0) g/dL Albumin 4.1 (3.5-5.0) g/dL Lipase 11 (8-78) U/L Beta HCG, Quant < 2 mIU/mL Urine Color Yellow Urine Appearance Cloudy Urine pH 6.5 (5.0-9.0) Ur Specific [place] >= 1.030 H (1.005-1.025) Urine Protein Negative (Neg-Trace) mg/dL Urine Glucose (UA) Negative (Negative) mg/dL Urine Ketones Negative (Negative) mg/dL Urine Blood Small (1+) H (Negative) Urine Nitrite Negative (Negative) Ur Leukocyte Esterase Moderate (2+) H (Negative) Urine RBC >20 H (0-2) /HPF Urine WBC 21-50 H (0-5) /HPF Ur Squamous Epith Cells >20 (0-2) /HPF Urine Bacteria 4+ (None Seen) Hyaline Casts 0-2 (0-2) /LPF Independent Interpretation I performed an independent interpretation of an: EKG (Negative STEMI), Plain X- Ray and CT Scan Radiology Impression Discussion of test interpretation with radiology: I have reviewed the radiologist's reading. Independent Historian Clinical information obtained from an independent historian. History obtained from or confirmed by: Other (Patient) External Record Review External record reviewed: Other (Private) Discharge Plan Discharge Clinical Impression: Chest pain, Paresthesia Patient Disposition: Home, Self-Care Instructions: Chest Pain (ED), Paresthesia (ED) Additional Instructions: Head CT scan came back normal. EKG and blood work came back negative for any heart attack or electrolyte abnormalities. You will need follow-up with your neurologist and primary care provider for re-evaluation. Return to the ED immediately for any slurred speech, facial droop, loss of vision, paralysis of extremities, chest pain, shortness of breath, coughing up blood, or any other concerning symptoms. Prescriptions: No Action ibuprofen 600 mg tablet 600 mg PO Q8H PRN (Reason: pain) Qty: 20 0RF doxycycline hyclate 100 mg capsule 100 mg PO BID 7 Days Qty: 14 0RF erythromycin 5 mg/gram (0.5 %) ointment 0.5 inch ophthalmic (eye) BID 7 Days Qty: 3.5 0RF metronidazole 500 mg tablet 500 mg PO BID 7 Days Qty: 14 0RF clindamycin HCl 300 mg capsule 300 mg PO Q6H 10 Days Qty: 40 0RF ketorolac 10 mg tablet 10 mg PO Q6H 5 Days Qty: 20 0RF clindamycin HCl 300 mg capsule 600 mg PO Q8H 7 Days Qty: 42 0RF acetaminophen [Tylenol Extra Strength] 500 mg tablet 1,000 mg PO Q6H PRN (Reason: fever or pain) Qty: 20 0RF ibuprofen 400 mg tablet 400 mg PO TID PRN (Reason: fever or pain) Qty: 30 0RF Referrals: [facility] [Primary Care Provider] - (Paresthesia. Chest pain) Stand Alone Forms: Work/School Release Interventions: ED Discharge Assessment Last Done: 05/15/24 19:46 Discharge Date/Time: 05/15/24 19:47 Print Language: Honduran
[2024-05-15 17:35] LABS: INTERNATIONAL NORM RATIO 0.9 (0.9-1.1); Prothrombin Time 10.7 SEC (10.9-12.4)
[2024-05-15 17:37] LABS: Partial Thromboplastin Time 35.5 SEC (26.0-36.8)
[2024-05-15 17:58] LABS: Troponin-I High Sensitivity < 2.7 ng/L (<3.5-17.0)
[2024-05-15 19:46] VITALS: BP 120/83; PULSE 75; RESP 16; TEMP 36.3; O2SAT 97
== END 2024-05-15 19:47 | disposition home or self-care (01) ==
PROVIDERS: Physician Assistant; Emergency Provider Emergency Medicine
DX: R07.89 Other chest pain (principal); R20.2 Paresthesia of skin; M79.602 Pain in left arm; M54.2 Cervicalgia; R51.9 Headache, unspecified; R47.81 Slurred speech; Z79.899 Other long term (current) drug therapy
CPT/HCPCS: 36415; 70450; 71045; 80053; 81001; 83690; 83735; 84100; 84484; 84702; 85025; 85610; 85730; 87086; 93005; 99284

== ENCOUNTER → 2024-05-15 16:43 | Outpatient (BNV) | payer MEDICAID, SELFPAY | PROVIDERS: Emergency Provider Emergency Medicine; Visit Provider Internal Medicine | DX: R94.31 Abnormal electrocardiogram [ECG] [EKG] (principal) | CPT/HCPCS: 93010 ==

== ENCOUNTER 2024-11-04 15:50 | Emergency (ER) | payer SELFPAY ==
--- NOTE | ~2024-11-04 | XR_ITS ---
CLINICAL HISTORY: LUE Pain 3 view left shoulder Comparison: None Findings: No fractures or dislocations. No significant loss of joint space or osteophytes. No erosions. No radiopaque foreign body. IMPRESSION: No acute fracture or dislocation. This document has been electronically signed by: Zandra Lockett DO on 11/04/2024 16:52:25
[2024-11-04 16:02] VITALS: BP 130/85; PULSE 76; RESP 18; TEMP 36.6; O2SAT 98; BMI 39.5
--- NOTE | 2024-11-04 16:03 | ED_ITS ---
HPI - Extremity Injury (Upper) General Chief Complaint: Extremity Injury, Upper Stated Complaint: neck/LT arm stiffness, unable to lift Time Seen by Provider: 11/04/24 21:03 History of Present Illness ED Provider: Karlos CAST narrative: The patient is a 34-year-old woman who says that she woke up yesterday morning with some stiffness on the left side of her neck. She has also gradually gotten pain in the left upper arm near the shoulder so that she can not lift the shoulder above the horizontal. She feels pain on the inside of the upper arm when she tries to lift the arm above the shoulder. She has no numbness or weakness in the hand. Her only regular medication is Paxil. She is not on control medication. She denies any injury. She does not really seem to have any repetitive use of the left arm of any significance. She does think that she might have slept strangely on the arm and the neck 2 nights ago. She is on suboxone BID. Related Data Previous Rx's ?Medication ?Instructions ?Recorded ibuprofen 600 mg tablet 600 mg PO Q8H PRN pain #20 tabs 07/08/20 doxycycline hyclate 100 mg capsule 100 mg PO BID 7 days #14 caps 03/25/21 erythromycin 5 mg/gram (0.5 %) eye 0.5 inch ophthalmic (eye) BID 7 03/25/21 ointment days #3.5 grams metronidazole 500 mg tablet 500 mg PO BID 7 days #14 tabs 03/27/21 clindamycin HCl 300 mg capsule 300 mg PO Q6H 10 days #40 caps 09/24/21 ketorolac 10 mg tablet 10 mg PO Q6H 5 days #20 tabs 09/24/21 acetaminophen 500 mg tablet 1,000 mg (2 x 500 mg) PO Q6H PRN 12/03/23 (Tylenol Extra Strength) fever or pain #20 tabs clindamycin HCl 300 mg capsule 600 mg (2 x 300 mg) PO Q8H 7 days 12/03/23 #42 caps ibuprofen 400 mg tablet 400 mg PO TID PRN fever or pain 12/03/23 #30 tabs acetaminophen 500 mg capsule 1,000 mg (2 x 500 mg) PO Q8H PRN 11/04/24 fever or pain #14 caps cyclobenzaprine 10 mg tablet 10 mg PO TID PRN muscle spasm #14 11/04/24 tabs ibuprofen 400 mg tablet 400 mg PO Q6H PRN pain #14 tabs 11/04/24 Allergies Allergy/AdvReac Type Severity Reaction Status Date / Time No Known Allergies Allergy Verified 11/04/24 16:04 Review of Systems 2 Review of Systems: Yes all other systems are reviewed and are negative [facility] Past Medical History Medical History Anxiety Depression Social History Social History (Updated 03/25/21 @ 21:19 by Amaya Dill DO) Unable to assess alcohol history related to: Unknown Patient Tobacco Use Status: Never used Tobacco Use of substances other than those prescribed or required for medical reasons: Unknown Advance Directives: No Advance Directives Information Provided: Yes Do you have a plan to hurt others: No Plan Physical Exam 2 Vital Signs: Vital Signs: Last Vital Signs Temp 98 F 11/04/24 21:49 Pulse 76 11/04/24 21:49 Resp 18 11/04/24 21:49 BP 130/85 11/04/24 21:49 Pulse Ox 98 11/04/24 21:49 O2 Del Method Room Air 11/04/24 21:49 BMI result Body Mass Index 39.5 Const: Other: The patient was awake and alert. She was sitting in a chair next to the stretcher. She did not appear acutely toxic. HEENT: Other: The face is symmetrical. Mucous membranes are moist. Eyes: Other: Pupils are round equal, conjunctivae are clear, extraocular movements are intact, the eyes appear normal. Neck: Other: The patient has some tenderness along the musculature of the left side of the neck. Resp: Effort & Inspection: normal respiratory effort Auscultation: clear to auscultation bilaterally Cardio: Rate: regular rate Rhythm: regular rhythm Heart sounds: S1 normal heart sound present and S2 normal heart sound present Skin: Other: The skin is dry and unremarkable. No skin abnormalities on the left arm or shoulder or neck. Neuro: Other: The patient is awake and alert with a normal mental status. Cranial nerves 2- 12 are intact. She has normal strength sensation in the left hand. The patient has normal function of the elbow. She is able to lift her left arm at the shoulder laterally but seems to be unable to lift the upper arm above the horizontal. At that point she seems to experience pain which I believe is the limiting factor Extrem: Other: the patient has tenderness with palpation of the left side of the neck and the left upper shoulder and the left upper arm. No deformity is apparent. She seems to have normal use an function of the left hand. The hand is neurovascularly intact. Good pulses in the wrist. She can use all the fingers and the wrist and the elbow normally. She seems to have pain when she elevates the upper arm and can not get the arm above the horizontal. With passive movement I can easily extend the arm above the head but the patient seems to be unable to lift the arm above her head primarily because of pain which seems to be on the medial aspect of the upper arm. Course Course Course Narrative: This is a Rapid Medical Exam performed in triage by Sophia Barreto PA-C. Full HPI, ROS and PE to be performed by primary ED provider. 34 yo F presenting to the ED c/o LUE pain w/decreased ROM 2/2 pain since waking yesterday. Admits to assoc stiff neck & migraine yesterday, denies RENO at present PE: RUE without reproducible tenderness to palpation. Limited ROM secondary to pain. Neurovascularly intact distally. No overt swelling/pitting edema or erythema. No meningeal signs Plan: X-ray, pain control, EKG Medications Administered Discontinued Medications Generic Name Dose Route Start Last Admin Trade Name Marceloq PRN Reason Stop Dose Admin Acetaminophen 975 mg 11/04/24 21:29 11/04/24 21:49 Acetaminophen 325 Mg Tablet PO 11/04/24 21:30 Not Given ONCE ONE Ketorolac Tromethamine 30 mg 11/04/24 21:29 11/04/24 21:49 Ketorolac Tromethamine 30 Mg/Ml Vial IM 11/04/24 21:30 Not Given ONCE ONE Medical Decision Making Medical Decision Making MDM Narrative: The patient is a 34-year-old female who presented primarily for evaluation of left arm pain which seems to center around the shoulder. An EKG and labs has been ordered at triage. These are unremarkable. An x-ray of the left shoulder is negative. Seems to be some kind of a fairly acute nontraumatic left shoulder pain syndrome. I do not think there is any neurological deficit. My plan was to provide the patient with a sling, cyclobenzaprine, ibuprofen, and have her follow up with her PCP and with Orthopedics. The patient is also on Suboxone. she currently takes her Suboxone b.i.d.. She is encouraged to cut her films in half and take them q.i.d.. This will be the same amount of Suboxone daily taken in smaller more frequent doses. Suboxone is more effective for pain management in his way. The patient apparently left the emergency department before she has been given her formal discharge instructions. I asked the nurse to contact the patient to let her know that prescriptions has been sent to her pharmacy. Otherwise the patient was aware of my recommendations. She did not receive a sling because she had left prior to receiving her discharge instructions. Lab Data 11/04/24 16:30 11/04/24 16:30 Labs: Lab Results 11/04/24 Range/Units 16:30 WBC 8.6 (4.8-10.8) X10*3/uL RBC 4.00 L (4.20-5.50) X10*6/uL Hgb 12.1 (12.0-16.0) g/dl Hct 36.7 L (37.0-47.0) % MCV 91.8 (80.0-98.0) fL MCH 30.3 (27.0-33.0) pg MCHC 33.0 (31.0-35.0) g/dl RDW 11.9 (11.0-16.0) % Plt Count 321 (160-400) X10*3/uL MPV 9.3 L (9.4-12.3) fL Immature Gran % (Auto) 0.2 (0.0-0.4) % Neut % (Auto) 56.9 (45-73) % Lymph % (Auto) 36.5 (20-40) % [place] % (Auto) 4.6 (2-11) % Eos % (Auto) 1.5 (0-4) % Baso % (Auto) 0.3 (0-2) % Lymph # (Auto) 3.2 (1.2-4.9) X10*3/uL [place] # (Auto) 0.4 (0.1-1.2) X10*3/uL Eos # (Auto) 0.1 (0.0-0.4) X10*3/uL Baso # (Auto) 0.0 (0.0-0.2) X10*3/uL Abs Immat Gran (auto) 0.02 (0.00-0.03) X10*3/uL Absolute Neuts (auto) 4.9 (2.0-8.3) x10*3/uL Absolute Nucleated RBC 0.000 (0.0-0.012) X10*3/uL Nucleated RBC % (auto) 0.0 (0.0-0.2) /100WBC Sodium 137 (135-145) mmol/L Potassium 3.6 (3.3-5.1) mmol/L Chloride 105 (96-108) mmol/L Carbon Dioxide 24 (22-29) mmol/L Anion Gap 12 (12-20) BUN 11 (9-16) mg/dL Creatinine 0.79 (0.5-1.4) mg/dL Estim Creat Clear Calc 109.7 Estimated GFR > 60 Random Glucose 98 (60-115) mg/dL Calcium 9.0 (8.4-10.2) mg/dL Magnesium 1.9 (1.6-2.6) mg/dL Total Bilirubin 0.3 (0.0-1.0) mg/dL Direct Bilirubin 0.1 (0.0-0.5) mg/dL AST 23 (5-31) U/L ALT 15 (0-31) U/L Alkaline Phosphatase 59 (39-117) U/L Troponin I High Sens < 2.7 (<3.5-17.0) ng/L Total Protein 7.5 (6.5-8.0) g/dL Albumin 4.1 (3.5-5.0) g/dL Discharge Plan Discharge Clinical Impression: Acute pain of left shoulder Patient Disposition: Home, Self-Care Instructions: Shoulder Pain (ED) Additional Instructions: Please wear the sling for comfort. For treatment of your pain you may use the prescribed acetaminophen (Tylenol) and the prescribed ibuprofen. I have also sent a prescription for a muscle relaxant, cyclobenzaprine that you may take up to 3 times a day as needed. No driving on cyclobenzaprine. Another thing you might be able to do to help reduce your pain is to change your Suboxone dosing. If you cut your Suboxone films and half and take 4 half films per day you will get the same total amount of Suboxone per day but this may help your pain more than taking Suboxone 2 times a day. Apparently frequent small doses of Suboxone can be more helpful for pain than less frequent larger doses. Please contact your primary doctor's office in the morning for a follow up appointment. You have also been given the contact information for the orthopedic office. Contact the orthopedic office for a follow up appointment as well for a more specialist opinion about your shoulder. If you feel significantly worse, especially if you develop a fever, return to the emergency room for re-evaluation. Prescriptions: New cyclobenzaprine 10 mg tablet 10 mg PO TID PRN (Reason: muscle spasm) Qty: 14 0RF ibuprofen 400 mg tablet 400 mg PO Q6H PRN (Reason: pain) Qty: 14 0RF acetaminophen 500 mg capsule 1,000 mg PO Q8H PRN (Reason: fever or pain) Qty: 14 0RF No Action ibuprofen 600 mg tablet 600 mg PO Q8H PRN (Reason: pain) Qty: 20 0RF doxycycline hyclate 100 mg capsule 100 mg PO BID 7 Days Qty: 14 0RF erythromycin 5 mg/gram (0.5 %) ointment 0.5 inch ophthalmic (eye) BID 7 Days Qty: 3.5 0RF metronidazole 500 mg tablet 500 mg PO BID 7 Days Qty: 14 0RF clindamycin HCl 300 mg capsule 300 mg PO Q6H 10 Days Qty: 40 0RF ketorolac 10 mg tablet 10 mg PO Q6H 5 Days Qty: 20 0RF clindamycin HCl 300 mg capsule 600 mg PO Q8H 7 Days Qty: 42 0RF acetaminophen [Tylenol Extra Strength] 500 mg tablet 1,000 mg PO Q6H PRN (Reason: fever or pain) Qty: 20 0RF ibuprofen 400 mg tablet 400 mg PO TID PRN (Reason: fever or pain) Qty: 30 0RF Referrals: [facility] [Provider Group] (Left shoulder pain) [facility] [Provider Group] (atraumatic left shoulder pain) Interventions: ED Discharge Assessment Last Done: 11/04/24 21:49 Discharge Date/Time: 11/04/24 21:51 Print Language: Macedonian
--- NOTE | 2024-11-04 16:06 | ECG_ITS ---
Test Reason : lue pain Blood Pressure : */* mmHG Vent. Rate : 72 BPM Atrial Rate : 72 BPM P-R Int : 230 ms QRS Dur : 72 ms QT Int : 372 ms P-R-T Axes : 27 18 21 degrees QTcB Int : 407 ms Sinus rhythm with 1st degree A-V block Cannot rule out Anterior infarct (cited on or before 15-May-2024) Abnormal ECG When compared with ECG of 15-May-2024 17:00, KS interval has increased Nonspecific T wave abnormality no longer evident in Anterior leads Referred By: Sophia Barreto Electronically Signed By: CARLOS ALBERTO SMITH MD
[2024-11-04 16:38] LABS: MANUAL DIFF FLAG NO
[2024-11-04 16:39] LABS: Basophils Percent Auto 0.3 % (0-2); Eosinophils Absolute Auto 0.1 X10*3/uL (0.0-0.4); Eosinophils Percent Auto 1.5 % (0-4); Hematocrit 36.7 % (37.0-47.0); Hemoglobin 12.1 g/dl (12.0-16.0); Imm Gran Abs Auto 0.02 X10*3/uL (0.00-0.03); Imm Gran Pct Auto 0.2 % (0.0-0.4); Lymphocytes Absolute Auto 3.2 X10*3/uL (1.2-4.9); Lymphocytes Percent Auto 36.5 % (20-40); Mean Corpuscular Hemoglobin 30.3 pg (27.0-33.0); Mean Corpuscular Volume 91.8 fL (80.0-98.0); Mean Platelet Volume 9.3 fL (9.4-12.3); Monocytes Absolute Auto 0.4 X10*3/uL (0.1-1.2); Monocytes Percent Auto 4.6 % (2-11); Neutrophils Absolute Auto 4.9 x10*3/uL (2.0-8.3); Neutrophils Percent Auto 56.9 % (45-73); Platelet Count 321 X10*3/uL (160-400); Red Cell Distribution Width 11.9 % (11.0-16.0); White Blood Count 8.6 X10*3/uL (4.8-10.8)
[2024-11-04 17:05] LABS: Alanine Aminotransferase 15 U/L (0-31); Albumin Level 4.1 g/dL (3.5-5.0); Alkaline Phosphatase 59 U/L (39-117); Anion Gap 12 (12-20); Aspartate Amino Transferase 23 U/L (5-31); Bilirubin Direct 0.1 mg/dL (0.0-0.5); Bilirubin Total 0.3 mg/dL (0.0-1.0); Blood Urea Nitrogen 11 mg/dL (9-16); Carbon Dioxide 24 mmol/L (22-29); Chloride 105 mmol/L (96-108); Creatinine Clr Calc Pharmacy 109.7; Estimated Glomerular Filt Rate > 60; Glucose Random 98 mg/dL (60-115); Magnesium 1.9 mg/dL (1.6-2.6); Potassium 3.6 mmol/L (3.3-5.1); Sodium 137 mmol/L (135-145); Total Protein 7.5 g/dL (6.5-8.0)
[2024-11-04 17:13] LABS: Troponin-I High Sensitivity < 2.7 ng/L (<3.5-17.0)
--- NOTE | 2024-11-04 19:52 | PC.NURSE ---
pt refused sars swab.
--- NOTE | 2024-11-04 20:09 | PC.NURSE ---
attempted to get pt to wait to be seen by provider, pt refused to wait longer. wanted to leave.
--- NOTE | 2024-11-04 21:48 | PC.NURSE ---
PT refused meds & did not want to wait for DC paperwork, provider Krogious aware.
[2024-11-04 21:49] VITALS: BP 130/85; PULSE 76; RESP 18; TEMP 36.6; O2SAT 98
== END 2024-11-04 21:51 | disposition home or self-care (01) ==
PROVIDERS: Physician Assistant; Emergency Provider Emergency Medicine
DX: M25.512 Pain in left shoulder (principal); M54.2 Cervicalgia
CPT/HCPCS: 36415; 73030; 80048; 80076; 83735; 84484; 85025; 93005; 99283; 99284

== ENCOUNTER → 2024-11-04 16:06 | Outpatient (BNV) | payer SELFPAY | PROVIDERS: Emergency Provider Emergency Medicine; Visit Provider Internal Medicine Cardiovascular Disease | DX: I44.0 Atrioventricular block, first degree (principal) | CPT/HCPCS: 93010 ==

== ENCOUNTER → 2024-11-04 16:06 | Outpatient (BNV) | payer MEDICAID, SELFPAY | PROVIDERS: Visit Provider Radiology Diagnostic Radiology | DX: M79.622 Pain in left upper arm (principal) | CPT/HCPCS: 73030 ==

== ENCOUNTER 2025-04-28 19:11 | Emergency (ER) | payer MEDICAID, SELFPAY ==
[2025-04-28 19:41] VITALS: BP 114/61; PULSE 71; RESP 18; TEMP 36.7; O2SAT 99; BMI 37.4
--- NOTE | 2025-04-28 19:42 | ED_ITS ---
HPI - General Adult General Chief complaint: Dental/Oral Stated complaint: Dental Pain Time Seen by Provider: 04/28/25 19:46 Source: patient and RN notes reviewed Mode of arrival: ambulatory Limitations: no limitations History of Present Illness HPI narrative: 35-year-old female presents for evaluation of left-sided facial pain and swelling. Patient states symptoms have been going on for the past 2 days. She has a history of poor dentition and has not had significant follow up through. Upon awakening this morning she had increased swelling to the left side of her face. Denies any fevers chills nausea or vomiting. She has a dentist. She has been eating and drinking normally. Patient is otherwise feeling well. She has not any medication today except for 1 leftover amoxicillin from her last infection. Related Data Previous Rx's ?Medication ?Instructions ?Recorded ibuprofen 600 mg tablet 600 mg PO Q8H PRN pain #20 t abs 07/08/20 doxycycline hyclate 100 mg capsule 100 mg PO BID 7 day s #14 caps 03/25/21 erythromycin 5 mg/gram (0.5 %) eye 0.5 inch ophthalmic (eye) BID 7 03/25/21 ointment days #3.5 grams metronidazole 500 mg tablet 500 mg PO BID 7 days #14 t abs 03/27/21 clindamycin HCl 300 mg capsule 300 mg PO Q6H 10 days # 40 caps 09/24/21 ketorolac 10 mg tablet 10 mg PO Q6H 5 days #20 tabs 09/24/21 acetaminophen 500 mg tablet 1,000 mg (2 x 500 mg) PO Q 6H PRN 12/03/23 (Tylenol Extra Strength) fever or pain #20 tabs clindamycin HCl 300 mg capsule 600 mg (2 x 300 mg) PO Q8H 7 days 12/03/23 #42 caps ibuprofen 400 mg tablet 400 mg PO TID PRN fever or p ain 12/03/23 #30 tabs acetaminophen 500 mg capsule 1,000 mg (2 x 500 mg) PO Q8H PRN 11/04/24 fever or pain #14 caps cyclobenzaprine 10 mg tablet 10 mg PO TID PRN muscle s pasm #14 11/04/24 tabs ibuprofen 400 mg tablet 400 mg PO Q6H PRN pain #14 t abs 11/04/24 clindamycin HCl 300 mg capsule 300 mg PO Q6H 10 days # 40 caps 04/28/25 (Cleocin HCl) naproxen 500 mg tablet 500 mg PO BID PRN pain 7 day s #14 04/28/25 tabs Allergies Allergy/AdvReac Type Severity Reaction Status Date / Time No Known Allergies Allergy Verified 04/28/25 19:44 Review of Systems Review of Systems: Yes all other systems are reviewed and are negative Constitutional: Constitutional: Denies headache(s) ENT: Reports facial pain, Denies headache(s) and Denies neck pain Musculoskeletal: Musculoskeletal: Denies neck pain Neurologic: Denies headache(s) [facility] Past Medical History Medical History Anxiety Depression Social History Social History Patient Tobacco Use Status: Never used Tobacco Advance Directives: No Advance Directives Information Provided: No Physical Exam ED Vital Signs: Vital Signs - 24 hr 04/28/25 19:41 Temperature 98.1 F Pulse Rate 71 Respiratory Rate 18 Blood Pressure 114/61 Pulse Oximetry 99 Oxygen Delivery Method Room Air BMI result Body Mass Index 37.4 Const General: alert, awake and Physically active HENMT Other: Oropharynx is moist. No tongue elevation or edema. Teeth are in poor repair with many decayed and broken dentition. There is left lateral gingival edema in the area of tooth number 20. There was no fluctuance or active discharge. There was no floor of the mouth edema or tenderness. Neck Other: No lymphadenopathy. No tenderness to the submental region. No fullness. Medications Administered Discontinued Medications Generic Name Dose Route Start Last Admin Trade Name Ross PRN Reason Stop Dose Admin Clindamycin HCl 300 mg 04/28/25 19:45 04/28/25 19:50 Clindamycin Hcl 300 Mg Capsule PO 04/28/25 19:46 300 mg ONCE ONE Administration Medical Decision Making Medical Decision Making MDM Narrative: 35-year-old female with decayed dentition, dental caries with left-sided facial swelling. Concern for dental infection with early developing abscess. At this time there does not appear to be any discrete drainable abscess. Patient would like to trial antibiotics 1st at this time. I have expressed expresses that instructions that if symptoms worsen or do not improve that she may need to have attempt to have I and D. patient states she will contact her dentist 1st thing tomorrow morning. She expresses understanding of all discharge instructions and has no further questions at this time. First dose of antibiotics given now. Differential Diagnosis Differential Diagnoses: The differential diagnosis associated with the presentation includes Dental abscess Dental caries Gingivitis Sialolithiasis Prescription Management I considered prescription management with: Pain Medication and Antibiotic Discharge Plan Discharge Clinical Impression: Pain, dental, Dental infection Patient Disposition: Home, Self-Care Instructions: Dental Abscess (ED), Toothache (ED) Additional Instructions: You may have a developing abscess that may need to be opened and drained. Watch for any worsening of symptoms, including severe pain, fevers, increased swelling any other concern return immediately to the emergency department. Clindamycin as directed. Finish all antibiotics. Call your dentist first thing tomorrow morning. Follow-up with your primary care provider. Call this week to schedule a follow- up appointment. Return to the emergency department if you have any worsening of symptoms, or any concerns. Get well soon! Prescriptions: New clindamycin HCl [Cleocin HCl] 300 mg capsule 300 mg PO Q6H 10 Days Qty: 40 0RF naproxen 500 mg tablet 500 mg PO BID PRN (Reason: pain) 7 Days Qty: 14 0RF Rx Instructions: Take with food. No Action ibuprofen 600 mg tablet 600 mg PO Q8H PRN (Reason: pain) Qty: 20 0RF doxycycline hyclate 100 mg capsule 100 mg PO BID 7 Days Qty: 14 0RF erythromycin 5 mg/gram (0.5 %) ointment 0.5 inch ophthalmic (eye) BID 7 Days Qty: 3.5 0RF metronidazole 500 mg tablet 500 mg PO BID 7 Days Qty: 14 0RF clindamycin HCl 300 mg capsule 300 mg PO Q6H 10 Days Qty: 40 0RF ketorolac 10 mg tablet 10 mg PO Q6H 5 Days Qty: 20 0RF clindamycin HCl 300 mg capsule 600 mg PO Q8H 7 Days Qty: 42 0RF acetaminophen [Tylenol Extra Strength] 500 mg tablet 1,000 mg PO Q6H PRN (Reason: fever or pain) Qty: 20 0RF ibuprofen 400 mg tablet 400 mg PO TID PRN (Reason: fever or pain) Qty: 30 0RF cyclobenzaprine 10 mg tablet 10 mg PO TID PRN (Reason: muscle spasm) Qty: 14 0RF ibuprofen 400 mg tablet 400 mg PO Q6H PRN (Reason: pain) Qty: 14 0RF acetaminophen 500 mg capsule 1,000 mg PO Q8H PRN (Reason: fever or pain) Qty: 14 0RF Print Language: Albanian
--- OUTSIDE RECORDS SUMMARY | 2025-04-28 19:57 | XMS_ITS | Encounter Summary ---
Author Organization [employer] Address [address] [facility] [address] [place] [address] Care Team Providers Care High School Math Tutor Name Role Phone Sayra Tapia MD Primary Care Provide r Reason for Visit * Reason Comments Med Refill Encounter Details Date Type Department Care Team ([facility] Contact Info) Description 04/23/2025 Refill [facility] [address] [place] [address] Sayra Tapia MD [address] [place] [address] Anxiety Social History Tobacco Use Types Packs/Day Years Used Date Smoking Tobacco: Former Cigarettes 0.3 0.5 Passive Smoke Exposure: Never Smokeless Tobacco: Former Alcohol Use Standard Drinks/Week Comments Defer 0 (1 standard drink = 0.6 oz pur e alcohol) Depression Answer Date Recorded Patient Health Questionnaire-9 Score 0 01/27/2023 Housing Stability Answer Date Recorded What is your housing situation today? I have nick marrero 03/28/[address] you li ve. Do you have problems with any of the following? None of the above 03/28/2023 Food Insecurity Answer Date Recorded Within the past 12 months, y ou worried that your food would run out before you got money to buy more: Never True 03/28/2023 Within the past 12 months,th e food you bought just didn't last and you didn't have enough money to get more: Never True Transportation Answer Date Recorded In the past 12 months, has l ack of transportation kept you from medical appts, meetings, work or from getting things needed for daily living? No 03/28/2023 Utilities Answer Date Recorded In the past 12 months, has t he electric, gas, oil or water company threatened to shut off services in your home? No 03/28/2023 Depression Answer Date Recorded Patient Health Questionnaire-2 Score 0 01/27/2023 Comments No Sex and Gender Information Value Date Recorded Sex Assigned at Female 03/29/2022 10:33 AM EDT Legal Sex Female 10:33 AM EDT Gender Identity Female 03/29/2022 10:33 AM EDT Sexual Orientation Don't know 03/29/2022 10 :33 AM EDT documented as of this encounter Plan of Treatment Not on file documented as of this encounter Visit Diagnoses Diagnosis Anxiety Anxiety state, unspecified documented in this encounter Additional Health Concerns Assessment Noted Time PHQ-9 Depression Total Score: 0 01/28/20 23 1:13 PM EDT documented as of this encounter Care Teams High School Math Tutor Relationship Specialty Start Date End Date Sayra Tapia MD [address] [place] [address] PCP - General Family Medicine 08/07/18 documented as of this encounter
--- OUTSIDE RECORDS SUMMARY | 2025-04-28 19:57 | XMS_ITS | Encounter Summary ---
Author Organization [employer] Address [address] [facility] [address] [place] [address] Care Team Providers Care Digital Controls Technical Officer Name Role Phone Sayra Tapia MD Primary Care Provide r Reason for Visit * Reason Onset Date Comments jun recall 04/24/2025 Encounter Details Date Type Department Care Team ([facility] Contact Info) Description 04/24/2025 Telephone [facility] [address] [place] [address] Sayra Tapia MD [address] [place] [address] jun recall Social History Tobacco Use Types Packs/Day Years [...] AM EDT documented as of this encounter Miscellaneous Notes * Telephone Encounter - Erica Law [place] - 04/24/2025 2:41 PM EST Telephone call to patient to schedule a recall appointment. No answer, unable to leave voicemail (number out of service).. Recall letter sent. Visit type: Office visit Appointment notes: f\u Month due: June With: Diane Please schedule appointment above if patient returns call documented in this encounter Plan of Treatment Not on file documented as of this encounter Visit Diagnoses Not on filedocumented in this encounter Additional Health Concerns Assessment Noted Time PHQ-9 Depression Total Score: 0 01/28/20 23 1:13 PM EDT documented as of this encounter Care Teams Digital Controls Technical Officer Relationship Specialty Start Date End Date Sayra Tapia MD [address] [place] [phone] PCP - General Family Medicine 08/07/18 documented as of this encounter
--- OUTSIDE RECORDS SUMMARY | 2025-04-28 19:57 | XMS_ITS | Encounter Summary ---
Author Organization [employer] Address [address] [facility] [address] [place] [address] Care Team Providers Care Reed Or Wind Instrument Repairer Name Role Phone Sayra Tapia MD Primary Care Provide r Reason for Visit * Reason Comments Med Refill Encounter Details Date Type Department Care Team ([facility] Contact Info) Description 05/02/2024 Refill [facility] MED[facility] [address] [place] [address] Sayra Tapia MD [address] [place] [address] Anxiety Social History Tobacco Use Types Packs/Day [...] documented as of this encounter Care Teams Reed Or Wind Instrument Repairer Relationship Specialty Start Date End Date Sayra Tapia MD [address] [place] [address] PCP - General Family Medicine 08/07/18 documented as of this encounter
--- OUTSIDE RECORDS SUMMARY | 2025-04-28 19:57 | XMS_ITS | Clinical Summary ---
Author Organization [employer] Address [address] [facility] [address] [place] [address] Care Team Providers Care Egg Breaker Name Role Phone Sayra Tapia MD Primary Care Provide r Allergies No known active allergies Medications PARoxetine (Paxil) 20 MG tabletIndicati ons:Anxiety TAKE 1 TABLET BY MOUTH EVERY DAY IN THE MORNING 30 tablet 5 Active PARoxetine (Paxil) 20 MG tabletIndicati ons:Anxiety TAKE 1 TABLET BY MOUTH EVERY DAY IN THE MORNING 30 tablet 5 04/17/20 25 Discontinued Active Problems Problem Noted Date Diagnosed Date Anxiety 05/03/2024 Assessment & Plan (05/03/2024 3:25 PM EST): Stable c/w same paroxetine dose (20mg) daily At the moment declines [facility] referral Numbness and tingling in both hands 05/03/2024 Assessment & Plan (05/03/2024 3:25 PM EST): Nerve conduction studies ordered Neck pain 05/03/2024 Assessment & Plan (05/03/2024 3:24 PM EST): XRAY ordered today patient will be contacted with results Acute right ankle pain 05/03/2024 Assessment & Plan (05/03/2024 3:25 PM EST): Xray ordered today Orthopedics referral Dental abscess 01/26/2023 Retained dental root 01/26/2023 Encounters Date Type Department Care Team Description 04/24/2025 Telephone [facility] [address] [place] [address] Sayra Tapia MD feb recall 04/23/2025 Refill [facility] [address] [place] [address] Sayra Tapia MD Anxiety 04/17/2025 Refill [facility] [address] [place] [address] Sayra Tapia MD Anxiety 03/10/2025 Refill [facility] [address] [place] [address] Sayra Tapia MD Anxiety 02/05/2025 Telephone [facility] [address] [place] [address] Sayra Tapia MD NOV RECALL 02/05/2025 Refill [facility] [address] [place] [address] Sayra Tapia MD Anxiety from Last 3 Months Social History Tobacco Use Types Packs/Day Years Used Date Smoking Tobacco: Former Cigarettes 0.3 0.5 Passive Smoke Exposure: Never Smokeless Tobacco: Former Tobacco Cessation:Counseling Given: Not Answered Alcohol Use Standard Drinks/Week Comments Defer 0 (1 standard drink = 0.6 oz pur e alcohol) Depression Answer Date Recorded Patient Health Questionnaire-9 Score 0 01/27/2023 Housing Stability Answer Date Recorded What is your housing situation today? I have nickalannah marrero 03/28/[address] you [...] t he electric, gas, oil or water [email or web address] threatened to shut off services in your home? No 03/28/2023 Depression Answer Date Recorded Patient Health Questionnaire-2 Score 0 01/27/2023 Comments No Sex and Gender Information Value Date Recorded Sex Assigned at Female 03/29/2022 10:33 AM EDT Legal Sex Female 10:33 AM EDT Gender Identity Female 03/29/2022 10:33 AM EDT Sexual Orientation Don't know 03/29/2022 10 :33 AM EDT Last Filed Vital Signs Vital Sign Reading Time Taken Comments Blood Pressure 126/82 01/27/2023 1:11 PM EDT Pulse 80 01/27/2023 1:11 PM EDT Temperature 36.9 C (98.5 F) 01/27/2023 1:11 PM EDT Respiratory Rate 20 01/27/2023 1:11 PM EDT Oxygen Saturation - - Inhaled Oxygen Concentration - - Weight 90.6 kg (199 lb 12.8 oz) 01/27/2023 1:11 PM EDT Height 157.5 cm (5' 2 ) 01/27/2023 1:11 PM EDT Body Mass Index 36.54 01/27/2023 1:11 PM EDT Plan of Treatment Health Maintenance Due Date Last Done Comments Dental Oral Exam 1990 Dental Prophylaxis 1990 Dental X-Ray: Bitewings 1990 Disability Screening 1990 Alcohol/Substance Use Screening 2002 Family Planning (PISQ) 2005 HPV Vaccines (1 - 3-dose series) 2005 DTaP/Tdap/Td Vaccines (1 - Tdap) 2009 Hepatitis B Vaccines (1 of 3 - 19+ 3-dose series) 2009 Depression Screening 01/28/2024 01/27/2023, 01/28/20 SDOH Screening 01/28/2024 01/27/2023 Tobacco Screening 01/28/2024 01/27/2023 COVID-19 Vaccine (1 - 2024- season) 2025 Influenza Vaccine (#1) 2025 Cervical Cancer Screening 12/02/2026 HPV/Cotest 12/02/2026 12/02/2021 Pap Smear 12/02/2026 12/02/2021 Dental X-Ray: Full Mouth 02/08/2028 025, 05/16/2024, 04/20/2024, Additional history exists Zoster Vaccines (1 of 2) 2040 RSV Patients and Patients Aged 60 years or older (1 - 1-dose 75+ series) 2065 HIV Screening Completed 01/28/2023, 03/10/2022 Hepatitis C Screening Completed 01/28/2023, 022 HIB Vaccines Aged Out No longer eligi ble based on patient's age to complete this topic Hepatitis A Vaccines Aged Out No long er eligible based on patient's age to complete this topic IPV Vaccines Aged Out No longer eligi ble based on patient's age to complete this topic Meningococcal B Vaccine Aged Out No l onger eligible based on patient's age to complete this topic Meningococcal Vaccine Aged Out No lia maribell eligible based on patient's age to complete this topic Pneumococcal Vaccine: Pediatrics (0 to 5 Years) and At-Risk Patients (6 to 49) Years Aged Out No longer eligible based on patient's age to complete this topic RSV under 20 months Aged Out No longe r eligible based on patient's age to complete this topic Rotavirus Vaccines Aged Out No longer eligible based on patient's age to complete this topic Procedures Procedure Name Priority Date/Time Associated Diagnosis Comments HEPATITIS C ANTIBODY Routine 01/28/2023 12:00 AM EDT Screening examination for venereal disease HIV ANTIBODY/ANTIGEN ([place] [facility]) Routine 01/28/2023 12:00 AM EDT Screening examination for venereal disease PANORAMIC RADIOGRAPHIC IMAGE Routine 01/26/2023 11:00 AM EDT THINPREP IMAGING PAP AND HPV MRNA E6/E7, WITH CT/NG, TRICHOMONAS Routine 12/02/2021 12:00 AM EDT from Last 3 Months or Most Recently Relevant to Health Maintenance Results * Hepatitis C Ab (01/28/2023 12:00 AM EDT) Hepatitis C Antibody Nonreactive Nonreactive [facility] Comment:Antibodies to HCV no t detected; does not exclude early acuteHCV infection. Blood 01/28/2023 01/28/2023 Rut Farris [facility] LAB BLOOD ORDERABLES Frances l Result Performing Organization Address [facility] Co de Phone Number [facility] [address] [place] [address] [phone] * HIV Ab/Ag ([facility]) (01/28/2023 12:00 AM EDT) HIV AB/AG Nonreactive Nonreactive [facility] Comment:HIV-1 p24 Ag and/or HIV-1/HIV-2 Ab not detected.A test result that is nonreactive does not exclude thepossibility of exposure to or infection with HIV-1 and/orHIV-2. Nonreactive results in this assay for individualswith prior exposure to HIV-1 and/or HIV-2 may be due toantigen and antibody levels that are below the limit ofdetection of this assay.The [employer] HIV Ag/Ab Combo assay result andsupplemental assay results should be interpreted inconjunction with the patient's clinical presentation,history and other laboratory results. If the results areinconsistent with clinical evidence, additional testing issuggested to confirm the result. 01/28/2023 01/28/2023 [facility] Frances l Result Performing Organization Address [facility] Co de Phone Number [facility] [address] [place] [phone] * THINPREP TIS PAP AND HPV mRNA E6/E7, CT/NG, TRICH (12/02/2021 12:00 AM EDT) Chlamydia trachomatis RNA, TMA, Urogenital NOT DETECTED NOT DETECTED [facility] Clinical Information: Routine exam [facility] COMMENT SEE COMMENT [facility] Comment: The analytical performance characteristics of this assay, when used to test SurePath(TM) specimens have been determined by [facility]. The modifications have not been cleared or approved by the FDA. This assay has been validated pursuant to the CLIA regulations and is used for clinical purposes. For additional information, please refer to https://education.[employer]/faq/FFJ624 (This link is being provided for information/ educational purposes only.) COMMENT SEE COMMENT [facility] Comment: EXPLANATORY NOTE: The Pap is a screening test for cervical cancer. It is not a diagnostic test and is subject to false negative and false positive results. It is most reliable when a satisfactory sample, regularly obtained, is submitted with relevant clinical findings and history, and when the Pap result is evaluated along with historic and current clinical information. COMMENT: This Pap test has been evaluated with computer assisted technology. [facility] Technical Training Manager: SEE COMMENT [facility] Comment: JAMISON HUI(ASCP) CT screening location: [address] HPV nRNA E6/E7 Not Detected Not Detected [facility] Comment: Methodology: University Counselor-Mediated Amplification This assay detects E6/E7 viral messenger RNA (mRNA) from 14 high-risk HPV types (16,18,31,33,35,39,45,51,52,56,58,59,66,68). Cervical sources are required for HPV testing. If a vaginal source from a patient who has had a total hysterectomy with removal of cervix was submitted, please contact the testing laboratory for alternative testing options. For additional information, please refer to http://[employer]/faq/PXU851q9 (This link if provided for information/ educational purposes only.) Infection Shift in vaginal tia suggestive of bacterial vaginosis. [facility] Interpretation/Re sult: Negative for intraepithelial lesion or malignancy. [facility] LMP: NONE GIVEN [facility] Neisseria gonorrhoeae RNA, TMA, Urogenital NOT DETECTED NOT DETECTED [facility] Prev. BX: NONE GIVEN [facility] Prev. PAP: NONE GIVEN [facility] SOURCE: Cervix [facility] Statement Of Adequacy: SEE COMMENT [facility] Comment: Satisfactory for evaluation. Endocervical/transformation zone component absent. Trichomonas vaginalis, QL, TMA, PAP Vial NOT DETECTED NOT DETECTED [facility] Comment: The analytical performance characteristics of this assay have been determined by [facility]. The modifications have not been cleared or approved by the FDA. This assay has been validated pursuant to the CLIA regulations and is used for clinical purposes. For additional information, please refer to http://education.[employer]/ faq/Trichomonastma (This link is being provided for information/ educational purposes only.) 12/02/2021 Sayra Campuzano MD LAB PATHOLOGY ORDERAB LES Final Result [facility] [address] from Last 3 Months or Most Recently Relevant to Health Maintenance Insurance [facility] C3 DENTAL-[facility] MEDICAID STAND ADULT Care Teams Egg Breaker Relationship Specialty Start Date End Date Sayra Tapia MD [address] [place] [phone] PCP - General Family Medicine 08/07/18
--- OUTSIDE RECORDS SUMMARY | 2025-04-28 19:57 | XMS_ITS | Encounter Summary ---
Author Organization [employer] Address [address] [facility] [address]t [place] [address] Care Team Providers Care Bushel Girl Name Role Phone Sayra Tapia MD Primary Care Provide r Reason for Visit * Reason Onset Date Comments Med Refill 05/03/2024 Encounter Details Date Type Department Care Team ([facility] Contact Info) Description 05/03/2024 Telephone [facility] [address] [place] [address] Sayra Tapia MD [address] [place] [address] Med Refill Social History Tobacco Use Types Packs/Day Years [...] encounter Miscellaneous Notes * Telephone Encounter - Eva Maki LPN - 05/03/2024 8:59 AM EST Medication not pended patient last seen 03/10/22. Please review and advise. * Telephone Encounter - Cristian Weeks - 05/03/2024 8:44 AM EST TC from pt requesting medication refill. Medications needing refill : PARoxetine (Paxil) 20 MG tablet To be sent to: [facility]/pharmacy #[id number] documented in this encounter Plan of Treatment Not on file documented as of this encounter Visit Diagnoses Not on filedocumented in this encounter Additional Health Concerns Assessment Noted Time PHQ-9 Depression Total Score: 0 01/28/20 23 1:13 PM EDT documented as of this encounter Care Teams Bushel Girl Relationship Specialty Start Date End Date Sayra Tapia MD [address] [place] [address] PCP - General Family Medicine 08/07/18 documented as of this encounter
[2025-04-28 20:33] VITALS: BP 114/61; PULSE 71; RESP 18; TEMP 36.7; O2SAT 99
== END 2025-04-28 20:15 | disposition home or self-care (01) ==
PROVIDERS: Emergency Provider Emergency Medicine Emergency Medical Services
DX: K08.89 Other specified disorders of teeth and supporting structures (principal); K04.7 Periapical abscess without sinus
CPT/HCPCS: 99282; 99283